=== PATIENT | female | born 1990 | race Caucasian/White ===

== ENCOUNTER 2023-11-12 06:45 | Day surgery (SDC) | payer OTHER ==
[~2023-11-12] VITALS: Ht 152.4 cm; Wt 60.8 kg
[2023-11-12 07:21] LABS: HCG,QUAL RESULT NEGATIVE (NEGATIVE)
[2023-11-12 08:38] VITALS: O2SAT 98
[2023-11-12] MEDS ORDERED: ACETAMINOPHEN I.V. 1000 MG 100 ML IV ONE (08:57)
[2023-11-12] MEDS ORDERED: LR 1,000 ML IV SCH (09:30)
[2023-11-12] MEDS ORDERED: hydrALAZINE HCL 20 MG/ML VIAL IVP PRN (09:30)
[2023-11-12] MEDS ORDERED: MIDAZOLAM HCL 2 MG/2 ML VIAL (VERSED) IVP PRN (09:30)
[2023-11-12] MEDS ORDERED: MEPERIDINE HCL/PF 25 MG/ML DISP.SYRIN IVP PRN (09:30)
[2023-11-12] MEDS ORDERED: HYDROmorphone 1 MG/ML INJ. CARTRIDGE IVP PRN (09:30)
[2023-11-12] MEDS ORDERED: LABETALOL 100 MG/ 20ML VIAL IVP PRN (09:30)
[2023-11-12] MEDS ORDERED: DEXAMETHASONE SOD PHOSPHATE 4 MG/ML VIAL ONE (10:26)
[2023-11-12] MEDS ORDERED: LR 1,000 ML IV.SOLN IV ONE (10:26)
[2023-11-12] MEDS ORDERED: ROCURONIUM BROMIDE 10 MG/ML (ZEMURON) ONE (10:26)
[2023-11-12] MEDS ORDERED: WATER FOR IRRIGATION,STERILE 1,000 ML IRRIG.SOLN IR ONE (10:26)
[2023-11-12] MEDS ORDERED: NS IRRIG SOLN 1000 ML IR ONE (10:26)
[2023-11-12] MEDS ORDERED: DESFLURANE 15 MIN GAS INH ONE (10:26)
[2023-11-12] MEDS ORDERED: MIDAZOLAM HCL 2 MG/2 ML VIAL (VERSED) ONE (10:26)
[2023-11-12] MEDS ORDERED: OXYMETAZOLINE HCL 0.05% NASAL SPRAY NS ONE (10:26)
[2023-11-12] MEDS ORDERED: SUGAMMADEX SODIUM 200 MG/2 ML VIAL IV ONE (10:26)
[2023-11-12] MEDS ORDERED: MUPIROCIN 2% TOPICAL OINTMENT 22 GM ONE (10:26)
[2023-11-12] MEDS ORDERED: fentaNYL CITRATE/PF 100 MCG/2 ML AMP ONE (10:26)
[2023-11-12] MEDS ORDERED: LIDOCAINE/EPI 1% 1:100000 20 ML VIAL ONE (10:26)
[2023-11-12] MEDS ORDERED: PROPOFOL 200MG/ 20ML VIAL (DIPRIVAN) IV ONE (10:26)
[2023-11-12] MEDS ORDERED: HYDROmorphone 1 MG/ML INJ. CARTRIDGE ONE (11:18)
[2023-11-12] MEDS ORDERED: ONDANSETRON HCL 4 MG/2 ML VIAL ONE (11:19)
[2023-11-12] MEDS: HYDROmorphone 1 MG/ML INJ. CARTRIDGE IVP PRN (11:23)
[2023-11-12] MEDS: ONDANSETRON HCL 4 MG/2 ML VIAL IVP PRN (11:25)
[2023-11-12 16:23] VITALS: BP_SYST 125; PULSE 75; RESP 16
== END 2023-11-12 13:00 | disposition home or self-care (01) ==
LOC: SDS 06:45 → SMU 06:46 → SDS 13:00
PROVIDERS: ATTEND Otolaryngology
DX: J34.89 Other specified disorders of nose and nasal sinuses (principal); D38.5 Neoplasm of uncertain behavior of other respiratory organs; J34.2 Deviated nasal septum; F32.A Depression, unspecified; K21.9 Gastro-esophageal reflux disease without esophagitis; F41.9 Anxiety disorder, unspecified; G43.909 Migraine, unspecified, not intractable, without status migrainosus; Z87.891 Personal history of nicotine dependence; Z88.0 Allergy status to penicillin; Z88.8 Allergy status to other drugs, medicaments and biological substances; Z98.890 Other specified postprocedural states; Z79.899 Other long term (current) drug therapy; Z82.49 Family history of ischemic heart disease and other diseases of the circulatory system; Z80.3 Family history of malignant neoplasm of breast
CPT/HCPCS: 30520; 30140; 31240; 84703; 88304; 88311; J3490; J1100; J2250; J2405; J2704; J3010; J1171; J7120; J0131